=== PATIENT | female | born 1930 | race Caucasian/White ===

== ENCOUNTER 2016-12-27 11:09 | Emergency (ER) | payer OTHER, BC ==
[2016-12-27 11:31] VITALS: TEMP 97.9
[2016-12-27 12:06] LABS: % IMMATURE GRANULYOCYTES 0.5 % (0.0-1.1); ABSOLUTE IMMATURE GRANULOCYTES 0.04 10^3/uL (0.00-0.10); ABSOLUTE NRBC COUNT 0.04 10^3/uL (0-0.01); ADD DIFF? NO; ADD MORPH? NO; ADD SCAN? NO; ATYPICAL LYMPHOCYTE FLAG 0 (0-99); FRAGMENT RBC FLAG 0 (0-99); HEMATOCRIT 43.8 % (38.0-47.0); HEMOGLOBIN 14.6 g/dL (12.6-16.3); LEFT SHIFT FLG 0 (0-99); LIPEMIA HEMOLYSIS FLAG 80 (0-99); MEAN CELL HEMOGLOBIN 29.4 pg (27.9-34.1); MEAN CELL HEMOGLOBIN CONCENTR. 33.3 g/dL (32.4-36.7); MEAN CELL VOLUME 88.1 fL (81.5-99.8); MEAN PLATELET VOLUME 8.9 fL (8.7-11.7); NRBC-AUTO% 0.5 % (0.0-0.2); PLATELET CLUMPS FLAG 0 (0-99); PLATELET COUNT 321 10^3/uL (150-400); RED BLOOD CELL COUNT 4.97 10^6/uL (4.18-5.33); RED CELL DISTRIBUTION WIDTH 12.7 % (11.5-15.2)
[2016-12-27 12:17] LABS: INR 1.47 (0.83-1.16); PROTIME(PATIENT) 17.6 SEC (12.0-15.0)
[2016-12-27 12:21] LABS: ANION GAP 15 mEq/L (8-16); CALCIUM 9.5 mg/dL (8.5-10.4); CARBON DIOXIDE 24 mEq/l (22-31); CHLORIDE 98 mEq/L (97-110); CREATININE 0.6 mg/dL (0.6-1.0); GLOMERULAR FILTRATION RATE > 60; GLUCOSE 90 mg/dL (70-100); POTASSIUM 4.3 mEq/L (3.5-5.2); SODIUM 137 mEq/L (134-144)
[2016-12-27] MEDS ORDERED: LIDOCAINE 2% JELLY 5 ML TUBE TP ONE (12:35)
[2016-12-27] MEDS ORDERED: LIDOCAINE 2% VISCOUS 15 ML UDCUP ONE (12:44)
[2016-12-27] MEDS ORDERED: SKIN ADHESIVE (DERMABOND) 1 EACH TP ONE (13:37)
--- NOTE | 2016-12-27 13:44 | EDPHY ---
H & P Time Seen by Provider: 12/27/16 11:27 HPI/ROS: This patient presents with lip laceration, forehead laceration and head injury. She had a ground level fall while walking her dog. She reports that she was walking on an uneven surface sidewalk and tripped. She describes mechanical fall and struck her forehead. She denies any LOC. She reports pain at the left forehead site of impact and frontal headache that is mild intensity. She reports moderate pain from upper lip laceration associated with this fall. She denies any other injuries. She is brought in by a friend. Patient's history is notable for Coumadin for history of DVT/PE her most recent INR was 3.0 per her. ROS: Neuro: No numbness tingling or focal weakness. No visual changes. Musculoskeletal: neck pain. No back pain. With no extremity injuries. HEENT: No dental injury. She denies any intraoral injuries. Pulmonary: No shortness of breath. Cardiovascular: No chest pain GI: No nausea or vomiting. No belly pain. 10 point ROS is otherwise negative Past Medical/Surgical History: Thromboembolic disease Hypertension Smoking Status: Former smoker Physical Exam: Physical exam: Vital signs are normal General: Patient is in no acute distress. HEENT: Patient has a 4 cm hematoma in the left forehead with overlying superficial linear laceration that is well approximated with no active bleeding. That laceration is 3 cm in length. She has upper lip laceration oriented horizontally full-thickness in the lip mucosa. Does not cross vermilion border. The length is 1.3 cm Nose atraumatic. Ears: Clear bilaterally with no hemotympanum. Oropharynx: No dental trauma or malocclusion. No intraoral lacerations. She has mild chin swelling but no bony tenderness. No malocclusion. No intraoral injuries. No dental trauma. Eyes: Pupils are equal and reactive to light. Extraocular motions are intact. Optic fundi: Clear with no papilledema or hemorrhage. Neck: Trachea is midline with no stridor. The patient has no midline neck tenderness and retains a full range of motion without increase in pain. Lungs: Clear to auscultation bilaterally Cardiac: Regular rate and rhythm no murmur gallop or rub. Chest: Nontender. Abdomen: Soft nontender no organomegaly Back: Nontender Extremities: Atraumatic Neuro: GCS of 15. Cranial nerves II through XII intact. She is not amnestic to any of the events today. No perseveration. Cerebellar exam is normal as judged by symmetric rapid hand movements bilaterally. No pronator drift. No sensory or motor deficits are appreciated. Initial differential diagnosis: Minor head injury, cerebral contusion, concussion, lacerations, Constitutional: Initial Vital Signs Temperature (C) 36.6 C 12/27/16 11:18 Heart Rate 89 12/27/16 11:18 Respiratory Rate 18 12/27/16 11:18 Blood Pressure 180/95 H 12/27/16 11:18 O2 Sat (%) 95 12/27/16 11:18 O2 Delivery Mode Room Air Allergies/Adverse Reactions: morphine Allergy (Verified 12/27/16 11:20) Home Medications: Medication Instructions Recorded Ascorbic Acid [Vitamin C] 1,000 mg PO BID 03/23/12 Calcium Carb W/Vit D [Calcium Carb 500 mg PO BID 03/23/12 W/Vit D 500/200 (OTC)] Ferrous Sulfate [Ferrous Sulf 325 325 mg PO DAILY 03/23/12 MG (OTC)] Glucosamine Sulfate [Glucosamine 500 mg PO BID 03/23/12 Sulfate 500 MG (OTC)] Lisinopril [Zestril 20 mg (RX)] 20 mg PO DAILY 03/23/12 Multivitamins [Multivitamin (OTC)] 1 ea PO DAILY 03/23/12 [place]-3 Fatty Acids [Fish Oil 1000 1,000 mg PO DAILY 03/23/12 mg (OTC)] Sodium Chloride [Saline Nasal 1 spray NASAL PRN PRN 03/23/12 [place]] Hydrocodone/APAP 5/325 [[place] 0.5 - 1 tab PO Q4 PRN #10 tab 08/13/15 5/325 (RX)] Coumadin 12/27/16 MDM/Departure - MDM Diagnostics: CT brain is normal per Dr. Ludwig-radiologist. Imaging Results: Imaging Impressions Head CT 12/27/16 11:37 Impression: 1. Normal brain 2. Left frontal scalp hematoma. Results called and discussed with RAE CABAN MD at 12/27/2016 12:25 General information for patients regarding this examination can be found at [email or web address]. If you have questions or comments about this report, please contact me at ([facility] [address]) or [phone] ([facility]). Procedures: The lip wound is 1.3 cm. The wound was scrubbed with baby shampoo with saline. The wound was explored for foreign bodies and none were found. The wound was prepped and draped in the normal sterile fashion. The wound was anesthetized using 2% topical lighted gel followed by 1% plain lidocaine with sodium bicarb buffer, 27 gauge needle, 1.5 mL with good effect. The edges were reapproximated using 5 0 silk on a P3 needle-6 running sutures with good hemostasis and cosmesis. The patient tolerated the procedure well. There were no complications Dermabond closure to forehead laceration: After verbal consent I cleaned the wound with baby shampoo and saline. I then used Dermabond to close the wound with good hemostasis cosmesis. Patient tolerated this well. Medications Given: Discontinued Medications Lidocaine (Lidocaine 2% Jelly) 1 marquez TP EDNOW ONE Stop: 12/27/16 12:36 Last Admin: 12/27/16 13:18 Dose: 1 tube ED Course/Re-evaluation: Patient declined Tylenol or other analgesics. She maintains normal GCS of 15 throughout her stay his conversant and pleasant throughout. Fall on Coumadin but her INR is only 1.45 today. She attributes this to eating spinach recently. She reports compliance with her Coumadin. CT brain rules out cerebral contusion or other complications. Think that she is safe for discharge home given normal mental status and neuro exam and negative head CT. No evidence of other significant injuries. I counseled patient regarding red flag symptoms that would warrant return to emergency department including onset of significant headache, vomiting, confusion or other concerns. - Depart Disposition: Home, Routine, Self-Care Clinical Impression: Minor head injury without loss of consciousness Qualifiers: Encounter type: initial encounter Qualified Code(s): S09.90XA - Unspecified injury of head, initial encounter Lip laceration Qualifiers: Encounter type: initial encounter Qualified Code(s): S01.511A - Laceration without foreign body of lip, initial encounter Forehead laceration Qualifiers: Encounter type: initial encounter Qualified Code(s): S01.81XA - Laceration without foreign body of other part of head, initial encounter Condition: Good Instructions: Care For Your Stitches (ED), Head Injury (ED), Skin Adhesive Care (ED) Additional Instructions: Diagnoses: 1. Minor head injury 2. Lip laceration 3. Forehead laceration Your CT head looks normal today. Your INR is 1.45 Plan: Keep the lip wound clean and dry for the next 2 days then clean it daily with warm soapy water Return for suture removal in 5-7 days Avoid any ointment to the forehead wound. He can get web but do not scrub it. Glued typically falls off in 5-7 days by then he should have good wound healing. Tylenol for headache if needed. Continue Coumadin dose but stop spinach 5 for now. Call your coag doc to relate your current INR. Go to the emergency department or call 911 if he develops significant headache, vomiting, confusion or other concerns. Referrals: Poli Ulrich MD [Primary Care Provider] - As per Instructions
[2016-12-27 13:52] VITALS: BP 173/82; PULSE 82; RESP 16; O2SAT 92
== END 2016-12-27 13:50 | disposition home or self-care (01) ==
LOC: CED 11:09
PROC: 0CQ0XZZ Repair Upper Lip, External Approach (ICD-10-PCS; principal; 2016-12-27)
DX: S01.511A Laceration without foreign body of lip, initial encounter (principal); S01.81XA Laceration without foreign body of other part of head, initial encounter; I10 Essential (primary) hypertension; Z87.891 Personal history of nicotine dependence; W01.198A Fall on same level from slipping, tripping and stumbling with subsequent striking against other object, initial encounter; Y92.480 Sidewalk as the place of occurrence of the external cause; Y99.8 Other external cause status; Y93.01 Activity, walking, marching and hiking
CPT/HCPCS: 70450-PO; 80048-PO; 85025-PO; 85610-PO; 85730-PO

== ENCOUNTER 2018-03-30 03:49 | Emergency (ER) | payer OTHER, BC ==
[2018-03-30] MEDS ORDERED: DEXAMETHASONE 4 MG TAB PO ONE (04:08)
[2018-03-30] MEDS ORDERED: KETOROLAC 30 MG/1 ML SDV IM ONE (04:09)
--- NOTE | 2018-03-30 04:13 | EDPHY ---
H & P Stated Complaint: c/o ST/ diffculty swallowing/VYAS Time Seen by Provider: 03/30/18 04:04 HPI/ROS: CHIEF COMPLAINT: Sore throat HISTORY OF PRESENT ILLNESS: The patient is an 88-year-old female who comes to the emergency department complaining of a sore throat that has been present for 2 days. She states that it is been difficult to sleep tonight. No fever. No shortness of breath. No cough. Slightly runny nose. She also has a mild headache. She is currently on Coumadin for history of PE. She denies cardiac disease. No GI symptoms. Severity: Severe Modifying factors: No improvement with Tylenol at home she is asking if we can give her a throat spray. REVIEW OF SYSTEMS: Constitutional: denies: chills, fever, recent illness, recent injury EENTM: See HPI Respiratory: denies: cough, shortness of breath Cardiac: denies: chest pain, irregular heart rate, lightheadedness, palpitations Gastrointestinal/Abdominal: denies: abdominal pain, diarrhea, nausea, vomiting, blood streaked stools Genitourinary: denies: dysuria, frequency, hematuria, pain Musculoskeletal: denies: joint pain, muscle pain Skin: denies: lesions, rash, jaundice, bruising Neurological: denies: headache, numbness, paresthesia, tingling, dizziness, weakness Hematologic/Lymphatic: denies: blood clots, easy bleeding, easy bruising Immunologic/allergic: denies: HIV/AIDS, transplant EXAM: GENERAL: Well-appearing, well-nourished and in no acute distress. HEAD: Atraumatic, normocephalic. EYES: Pupils equal round and reactive to light, extraocular movements intact, sclera anicteric, conjunctiva are normal. ENT: TMs normal, nares patent, oropharynx clear without exudates. Moist mucous membranes. No obvious inflammation or exudate. NECK: Normal range of motion, supple without lymphadenopathy or JVD. LUNGS: Breath sounds clear to auscultation bilaterally and equal. No wheezes rales or rhonchi. HEART: Regular rate and rhythm without murmurs, rubs or gallops. ABDOMEN: Soft, nontender, normoactive bowel sounds. No guarding, no rebound. No masses appreciated. BACK: No CVA tenderness, no spinal tenderness, step-offs or deformities EXTREMITIES: Normal range of motion, no pitting or edema. No clubbing or cyanosis. NEUROLOGICAL: Cranial nerves II through XII grossly intact. Normal speech, normal gait. 5/5 strength, normal movement in all extremities, normal sensation , normal reflexes PSYCH: Normal mood, normal affect. SKIN: Warm, dry, normal turgor, no visible rashes or lesions. Source: Patient Exam Limitations: No limitations - Personal History Tetanus Vaccine Date: WITHIN 10 YRS - Medical/Surgical History Hx Asthma: No Hx Chronic Respiratory Disease: No Hx Diabetes: No Hx Cardiac Disease: No Hx Renal Disease: No Hx Cirrhosis: No Hx Alcoholism: No Hx HIV/AIDS: No Hx Splenectomy or Spleen Trauma: No Other PMH: 2011 pe, on coumadin, HTN, LUMPECTOMY - Family History Significant Family History: No pertinent family hx - Social History Smoking Status: Former smoker Alcohol Use: Sober Drug Use: None Constitutional: Initial Vital Signs Temperature (C) 37 C 03/30/18 03:55 Heart Rate 88 03/30/18 03:55 Respiratory Rate 18 03/30/18 03:55 Blood Pressure 190/115 H 03/30/18 03:55 O2 Sat (%) 97 03/30/18 03:55 O2 Delivery Mode Room Air Allergies/Adverse Reactions: morphine Allergy (Verified 12/27/16 11:20) Home Medications: Medication Instructions Recorded Ascorbic Acid [Vitamin C] 1,000 mg PO BID 03/23/12 Calcium Carb W/Vit D [Calcium Carb 500 mg PO BID 03/23/12 W/Vit D 500/200 (OTC)] Ferrous Sulfate [Ferrous Sulf 325 325 mg PO DAILY 03/23/12 MG (OTC)] Glucosamine Sulfate [Glucosamine 500 mg PO BID 03/23/12 Sulfate 500 MG (OTC)] Lisinopril [Zestril 20 mg (RX)] 20 mg PO DAILY 03/23/12 Multivitamins [Multivitamin (OTC)] 1 ea PO DAILY 03/23/12 [place]-3 Fatty Acids [Fish Oil 1000 1,000 mg PO DAILY 03/23/12 mg (OTC)] Sodium Chloride [Saline Nasal 1 spray NASAL PRN PRN 03/23/12 [place]] Hydrocodone/APAP 5/325 [[place] 0.5 - 1 tab PO Q4 PRN #10 tab 08/13/15 5/325 (RX)] Coumadin 12/27/16 Amoxicillin/Clavulanate Pot 875 mg PO BID #14 tab 03/30/18 [Augmentin 875Mg] Medical Decision Making ED Course/Re-evaluation: The patient's exam is relatively normal. She does have slight loss of her voice and considerable pain or swelling. I will treat her upfront with Decadron and Toradol and a strep swab has been sent. 4:40 a.m. we of run the strep swab twice and have gotten in valid results. I will start the patient on antibiotics based on her presentation. Azithromycin would interact with her Coumadin. I will start her on Augmentin. She is agreeable to this plan. Differential Diagnosis: Partial list of the Differential diagnosis considered include but were not limited to; strep throat, abscess and although unlikely based on the history and physical exam, I also considered meningitis, mononucleosis, pneumonia. I discussed these differential diagnoses and the plan with the patient as well as the usual and expected course. The patient understands that the diagnosis is provisional and that in medicine we are not always correct and that further workup is often warranted. Usual and customary warnings were given. All of the patient's questions were answered. The patient was instructed to return to the emergency department should the symptoms at all worsen or return, otherwise to followup with the physician as we discussed. - Data Points Medications Given: Discontinued Medications Amoxicillin/Clavulanate Potassium (Augmentin 875mg) 875 mg PO EDNOW ONE PRN Reason: Protocol Stop: 03/30/18 04:39 Last Admin: 03/30/18 04:45 Dose: 875 mg Dexamethasone (Decadron) 10 mg PO EDNOW ONE Stop: 03/30/18 04:09 Last Admin: 03/30/18 04:15 Dose: 10 mg Ketorolac Tromethamine (Toradol) 30 mg IM EDNOW ONE Stop: 03/30/18 04:10 Last Admin: 03/30/18 04:15 Dose: 30 mg Departure - Departure Disposition: Home, Routine, Self-Care Clinical Impression: Strep throat Condition: Fair Instructions: Strep Throat (ED) Referrals: Patient,NotPresent [Primary Care Provider] - As per Instructions Trina Mcmahan MD [[facility] Primary Care Provider] - As per Instructions Prescriptions: Amoxicillin/Clavulanate Pot [Augmentin 875Mg] 875 mg PO BID #14 tab
[2018-03-30] MEDS ORDERED: AMOXICILLIN/CLAVULANATE POT 875/125 MG TAB PO ONE (04:38)
[2018-03-30 04:50] VITALS: BP 164/62
== END 2018-03-30 04:48 | disposition home or self-care (01) ==
LOC: CED 03:49
DX: J02.0 Streptococcal pharyngitis (principal); Z86.718 Personal history of other venous thrombosis and embolism; Z87.891 Personal history of nicotine dependence; Z79.01 Long term (current) use of anticoagulants; Z86.711 Personal history of pulmonary embolism
CPT/HCPCS: 96372; 99284; J1885